=== PATIENT | female | born 1955 | race Caucasian/White ===

== ENCOUNTER → 2017-01-17 | Outpatient (REF) | payer OTHER | LOC: M LAB REF 12:27 | PROVIDERS: ATTEND Nurse Practitioner Family | DX: R21 Rash and other nonspecific skin eruption (principal) ==

== ENCOUNTER → 2017-05-28 | Outpatient (CLI) | payer OTHER ==
--- NOTE | 2017-05-28 10:45 | REPMRS ---
Patient History The patient states she has not had a clinical breast exam in over a year. Patient is postmenopausal and is nulliparous. Family history of prostate cancer in father at age 75 and colorectal cancer in mother at age 74. Benign core biopsy of the left breast, 2010. Benign lumpectomy of the left breast, 2004. Took hormonal contraceptives for 5 years. Took estrogen for 7 years. Took progesterone for 7 years. Digital Mammo Screening Bilat: May 28, 2017 - Exam #: [id number] Bilateral CC and MLO view(s) were taken. Technologists: Marielle Ugarte, Technologist; Darrin Mooney, Technologist Prior study comparison: May 26, 2016, bilateral digital mammo screening bilat performed at [facility]. May 25, 2015, bilateral digital mammo screening bilat performed at [facility]. FINDINGS: There are scattered fibroglandular densities. There has been no change in the appearance of the mammogram from the prior studies. There is a mild amount of residual fibroglandular tissue which is fairly symmetric. There is no interval development of dominant mass, architectural distortion, or clustered microcalcification suggestive of malignancy. ASSESSMENT: BI-RADS/ACR category 1 mammogram. Negative. Recommendation Routine screening mammogram in 1 year (for women over age 40). This mammogram was interpreted with the aid of an FDA-approved computer-aided dectection system. Electronically Signed By: Joe Cardona MD 05/28/17 2414
== END ==
LOC: M RAD 09:41
PROVIDERS: ATTEND Nurse Practitioner Family
DX: Z12.31 Encounter for screening mammogram for malignant neoplasm of breast (principal)

== ENCOUNTER → 2018-04-25 | Outpatient (REF) | payer OTHER | LOC: M LAB REF 09:25 | DX: J02.9 Acute pharyngitis, unspecified (principal) | CPT/HCPCS: 87081 ==

== ENCOUNTER → 2018-05-30 | Outpatient (CLI) | payer OTHER | LOC: M RAD 07:44 | DX: Z12.31 Encounter for screening mammogram for malignant neoplasm of breast (principal) ==

== ENCOUNTER → 2018-06-13 | Outpatient (CLI) | payer OTHER ==
[2018-06-13 13:00] LABS: BASO % 0.5 % (0.0-1.0); EOS # 0.3 10^3/uL (0.0-0.50); EOS % 6.7 % (0.0-3.0); HEMATOCRIT 41.8 % (36.0-47.0); HEMOGLOBIN 13.4 g/dl (12.0-15.5); IMMATURE GRANULOCYTE % 0.3 % (0-3.0); LYMPH # 0.9 10^3/uL (1.5-4.5); LYMPH % 23.2 % (24.0-44.0); MEAN CORPUSCULAR HEMOGLOBIN 30.7 pg (27.0-33.0); MEAN CORPUSCULAR HGB CONC 32.1 g/dl (32.0-36.5); MEAN CORPUSCULAR VOLUME 95.9 fl (80.0-96.0); MONO # 0.5 10^3/uL (0.0-0.8); MONO % 12.7 % (0.0-5.0); NEUTROPHILS # 2.1 10^3/uL (1.8-7.7); NEUTROPHILS % 56.6 % (36.0-66.0); PLATELET COUNT, AUTOMATED 206 10^3/uL (150-450); RED BLOOD COUNT 4.36 10^6/uL (4.00-5.40); RED CELL DISTRIBUTION WIDTH 12.8 % (11.5-14.5); WHITE BLOOD COUNT 3.7 10^3/uL (4.0-10.0)
[2018-06-13 13:11] LABS: ALBUMIN 3.4 GM/DL (3.2-5.2); ALBUMIN/GLOBULIN RATIO 1.13 (1.00-1.93); ALKALINE PHOSPHATASE 92 U/L (45-117); ALT/SGPT 29 U/L (12-78); ANION GAP 7 MEQ/L (8-16); AST/SGOT 25 U/L (7-37); BILIRUBIN,TOTAL 0.4 MG/DL (0.2-1.0); BLOOD UREA NITROGEN 20 MG/DL (7-18); CALCIUM LEVEL 9.1 MG/DL (8.8-10.2); CARBON DIOXIDE LEVEL 26 MEQ/L (21-32); CHLORIDE LEVEL 110 MEQ/L (98-107); CREATININE FOR GFR 0.75 MG/DL (0.55-1.30); GLOMERULAR FILTRATION RATE > 60.0 (>45); GLUCOSE, FASTING 76 MG/DL (70-100); POTASSIUM SERUM 4.6 MEQ/L (3.5-5.1); SODIUM LEVEL 143 MEQ/L (136-145); TOTAL PROTEIN 6.4 GM/DL (6.4-8.2)
== END ==
LOC: M WUC 09:47
DX: M79.603 Pain in arm, unspecified (principal); M50.223 Other cervical disc displacement at C6-C7 level; M50.222 Other cervical disc displacement at C5-C6 level
CPT/HCPCS: 80053

== ENCOUNTER → 2018-06-17 | Outpatient (REF) | payer OTHER ==
[2018-06-17 21:14] LABS: C REACTIVE PROTEIN QUANTITATIV 1.39 MG/DL (0.00-0.30)
[2018-06-20 00:07] LABS: Lyme Disease IgG/IgM Antibodie <0.91 ISR (0.00-0.90); Lyme Disease IgM Ab Quantitati <0.80 index (0.00-0.79)
== END ==
LOC: M LAB REF 16:35
DX: M79.10 Myalgia, unspecified site (principal); M19.90 Unspecified osteoarthritis, unspecified site

== ENCOUNTER → 2018-06-24 | Outpatient (REF) | payer OTHER ==
[2018-06-24 14:14] LABS: C REACTIVE PROTEIN QUANTITATIV 0.65 MG/DL (0.00-0.30)
== END ==
LOC: M LAB REF 13:29
DX: M19.90 Unspecified osteoarthritis, unspecified site (principal)

== ENCOUNTER → 2018-07-19 | Outpatient (REF) | payer OTHER ==
[2018-07-19 12:47] LABS: C REACTIVE PROTEIN QUANTITATIV 0.86 MG/DL (0.00-0.30)
== END ==
LOC: M LAB REF 12:23
DX: M19.90 Unspecified osteoarthritis, unspecified site (principal)

== ENCOUNTER → 2018-09-23 | Outpatient (REF) | payer OTHER | LOC: M LAB REF 11:57 | PROVIDERS: ATTEND Internal Medicine | DX: E07.9 Disorder of thyroid, unspecified (principal) ==

== ENCOUNTER → 2018-11-21 | Outpatient (REF) | payer OTHER | LOC: M LAB REF 13:50 | PROVIDERS: ATTEND Nurse Practitioner Family | DX: R79.82 Elevated C-reactive protein (CRP) (principal) ==

== ENCOUNTER 2019-05-22 07:51 | Day surgery (SDC) | payer MEDICARE, OTHER ==
[~2019-05-22] VITALS: Ht 172.7 cm; Wt 124.7 kg
[~2019-05-22 07:51] MED LIST: CALC500C16 PO; LEVO25TA5 PO; MULTCAP PO; NS 1,000 ML IV ONE; OLME20TA2 PO; OYST1TAB PO
[2019-05-22] MEDS ORDERED: LIDOCAINE 2% INJ 100 MG/5 ML SDV (FOR ANES.) As Ordered ONE (09:24)
[2019-05-22] MEDS ORDERED: PROPOFOL 200 MG/20 ML VIAL As Ordered ONE ×2 (09:24→10:14)
--- NOTE | 2019-05-22 10:33 | ROOR ---
Patient Name: Deborah Cloud Procedure Date: 05/22/2019 9:40 AM Date of : 1955 Age: 64 Room: [facility] Gender: Female Note Status: Finalized Procedure: Colonoscopy Indications: Screening patient at increased risk: Family history of 1st-degree relative with colorectal cancer at age 60 years (or older) Providers: Aren Dominguez MD Referring MD: NATALYA TYSON NP Requesting Provider: Medicines: Monitored Anesthesia Care Complications: No immediate complications. Procedure: Pre-Anesthesia Assessment: - Prior to the procedure, a History and Physical was performed, and patient medications and allergies were reviewed. The patient is competent. The risks and benefits of the procedure and the sedation options and risks were discussed with the patient. All questions were answered and informed consent was obtained. Patient identification and proposed procedure were verified by the physician, the nurse and the anesthesiologist in the procedure room. Mental Status Examination: alert and oriented. Airway Examination: normal oropharyngeal airway and neck mobility. Respiratory Examination: clear to auscultation. CV Examination: normal. Prophylactic Antibiotics: The patient does not require prophylactic antibiotics. Prior Anticoagulants: The patient has taken no previous anticoagulant or antiplatelet agents. ASA Grade Assessment: II - A patient with mild systemic disease. After reviewing the risks and benefits, the patient was deemed in satisfactory condition to undergo the procedure. The anesthesia plan was to use monitored anesthesia care (MAC). Immediately prior to administration of medications, the patient was re-assessed for adequacy to receive sedatives. The heart rate, respiratory rate, oxygen saturations, blood pressure, adequacy of pulmonary ventilation, and response to care were monitored throughout the procedure. The physical status of the patient was re-assessed after the procedure. The Colonoscope was introduced through the anus and advanced to the terminal ileum, with identification of the appendiceal orifice and IC valve. The colonoscopy was performed without difficulty. The patient tolerated the procedure well. The quality of the bowel preparation was good. The terminal ileum, ileocecal valve, appendiceal orifice, and rectum were photographed. Scope insertion time was 4 minutes. Scope withdrawal time was 8 minutes. The total duration of the procedure was 12 minutes. Findings: The perianal and digital rectal examinations were normal. The terminal ileum appeared normal. Three sessile polyps were found in the sigmoid colon, transverse colon and ascending colon. The polyps were 5 to 8 mm in size. These polyps were removed with a cold snare. Resection and retrieval were complete. Verification of patient identification for the specimen was done by the physician and nurse using the patient's name, date and medical record number. Estimated blood loss was minimal. Multiple small-mouthed diverticula were found from sigmoid to descending colon. There was no evidence of diverticular bleeding. Non-bleeding external and internal hemorrhoids were found during retroflexion. The hemorrhoids were medium-sized. Impression: - The examined portion of the ileum was normal. - Three 5 to 8 mm polyps in the sigmoid colon, in the transverse colon and in the ascending colon, removed with a cold snare. Resected and retrieved. - Moderate diverticulosis from sigmoid to descending colon. There was no evidence of diverticular bleeding. - Non-bleeding external and internal hemorrhoids. Recommendation: - Patient has a contact number available for emergencies. The signs and symptoms of potential delayed complications were discussed with the patient. Return to normal activities tomorrow. Written discharge instructions were provided to the patient. - High fiber diet. - Continue present medications. - Await pathology results. - Repeat colonoscopy in 3 - 5 years for surveillance based on pathology results. - Telephone GI clinic for pathology results in 2 weeks. - Return to primary care physician. Aren Dominguez MD Aren Dominguez MD 05/22/2019 10:33:17 AM Electronically signed by Aren Dominguez MD Number of Addenda: 0 Note Initiated On: 05/22/2019 9:40 AM Estimated Blood Loss: Estimated blood loss was minimal.
[2019-05-22 10:46] VITALS: BP 160/82
== END 2019-05-22 10:53 | disposition home or self-care (01) ==
LOC: M OPP 07:51
PROVIDERS: ATTEND Internal Medicine Gastroenterology
DX: Z12.11 Encounter for screening for malignant neoplasm of colon (principal); Z80.0 Family history of malignant neoplasm of digestive organs; K64.8 Other hemorrhoids; D12.5 Benign neoplasm of sigmoid colon; D12.3 Benign neoplasm of transverse colon; D12.2 Benign neoplasm of ascending colon; K57.30 Diverticulosis of large intestine without perforation or abscess without bleeding; G47.30 Sleep apnea, unspecified; Z79.899 Other long term (current) drug therapy; Z88.2 Allergy status to sulfonamides

== ENCOUNTER → 2019-06-02 | Outpatient (CLI) | payer MEDICARE, OTHER ==
[~2019-06-02] MED LIST changes: -NS 1,000 ML IV ONE
--- NOTE | 2019-06-02 09:27 | REPMRS ---
Patient History The patient states she had a clinical breast exam in 2018. Family history of colorectal cancer at age 74 in mother, prostate cancer at age 75 in father. Benign core biopsy of the left breast, 2010. Benign lumpectomy of the left breast, 2004. Took hormonal contraceptives for 5 years. Took estrogen for 7 years. Took progesterone for 7 years. 3D TOMOSYNTHESIS WAS PERFORMED. The [facility] lifetime risk for breast cancer is 8.1%. Digital Mammo Screening Bilat: June 02, 2019 - Exam #: [id number] Bilateral CC and MLO view(s) were taken. Technologist: Marielle Ugarte, Technologist Prior study comparison: May 30, 2018, bilateral digital mammo screening bilat performed at [facility]. May 28, 2017, bilateral digital mammo screening bilat performed at [facility]. FINDINGS: There are scattered fibroglandular densities. There has been no change in the appearance of the mammogram from the prior studies. There is a mild amount of residual fibroglandular tissue which is fairly symmetric. There is no interval development of dominant mass, architectural distortion, or clustered microcalcification suggestive of malignancy. Assessment: BI-RADS/ACR category 1 mammogram. Negative Mammogram. Recommendation Routine screening mammogram in 1 year (for women over age 40). This mammogram was interpreted with the aid of an FDA-approved computer-aided dectection system. Electronically Signed By: Joe Cardona MD 06/02/19 0985
== END ==
LOC: M RAD 08:18
PROVIDERS: ATTEND Nurse Practitioner Family
DX: Z12.31 Encounter for screening mammogram for malignant neoplasm of breast (principal)

== ENCOUNTER → 2020-06-03 | Outpatient (CLI) | payer MEDICARE, OTHER ==
--- NOTE | 2020-06-09 07:57 | REP ---
BILATERAL SCREENING MAMMOGRAM WITH 3D TOMOSYNTHESIS HISTORY: No family history of breast cancer. Tyrer-Cuzick lifetime risk of breast cancer 7.7%. TECHNIQUE: MLO and CC views of the bilateral breasts is performed with 3D tomosynthesis. FINDINGS: Mild fibroglandular tissue is present bilaterally in a fairly symmetrical pattern. Volpara breast density is B. I see no new mass or architectural distortion. The patient had a prior negative stereotactic biopsy of the left breast in 2010. A metallic clip is again seen in the upper left breast. There are increasing tiny calcifications adjacent to the clip when compared to prior studies. I would recommend magnification views to further evaluate. IMPRESSION: ACR 0 incomplete. In the upper left breast at the site of the prior biopsy, there appears to be an increasing number of tiny calcifications at that location. I would recommend further evaluation with magnification views. This mammogram was interpreted with the aid of an FDA approved computer-aided detection system. The patient states her last clinical breast exam was November 2019. Patient letter: 0. MTDD
--- NOTE | 2020-06-14 11:43 | DEXA ---
AP SPINE L1 - L4 1.345 1.4 3.0 LT FEMUR TOTAL 1.130 1.0 2.2 LT NECK 1.141 0.7 2.3 RT FEMUR TOTAL 1.128 1.0 2.2 RT NECK 1.102 0.5 2.0 TOTAL BODY TOTAL OTHER COMMENTS: Normal bone densitometry of the spine and hips. The increased density of the spine does not represent a significant change. The decreased density of the left hip does represent significant change. The decreased density of the right hip does represent significant change. The density of the spine has increased 1.4% since the initial exam on 04/09/2002. The increased 1.2% since the most recent exam on 04/21/2008. The density of the left hip has decreased 9.0% since the initial exam on 04/09/2002. The density of the left hip has decreased 4.8% since the most recent exam on 04/21/2008. The density of the right hip has decreased 8.4% since the initial exam on 04/09/2002. The density of the right hip has decreased 2.9% since the most recent exam on 04/21/2008. FOLLOW-UP: Recommendation for the next bone density exam: 5 years. CATHERINE
== END ==
LOC: M WHC 10:55
PROVIDERS: ATTEND Nurse Practitioner Family
DX: R92.2 Inconclusive mammogram (principal); Z13.820 Encounter for screening for osteoporosis; N60.02 Solitary cyst of left breast; M85.851 Other specified disorders of bone density and structure, right thigh; M85.852 Other specified disorders of bone density and structure, left thigh

== ENCOUNTER → 2020-06-23 | Outpatient (CLI) | payer MEDICARE, OTHER ==
--- NOTE | 2020-06-28 11:48 | REP ---
DATE: 06/23/2020 TIME: 10:10 a.m. DIGITAL DIAGNOSTIC UNILATERAL LEFT BREAST MAMMOGRAPHY WITH CAD: 3 views. HISTORY: Screening mammography from June 03, 2020 was BI-RADS category 0 because of calcifications in the left breast. Diagnostic imaging is recommended. Comparison mammography is also reviewed from 06/02/2019, 05/2018 and remote prior mammography dating back to 2010. This patient is status post benign stereotatic needle biopsy in the left breast and prior benign excisional biopsy in the left breast. MAMMOGRAPHIC FINDINGS: Magnifying focal spot compression CC, ML and MLO views of the left breast confirmed the presence of a grouping of polymorphic microcalcifications and coarse calcifications in the left breast centrally at approximately 12 o'clock position, middle 3rd. This is immediately adjacent to a previously placed needle biopsy marker clip. The microcalcifications have increased in number and size. The stereotatic needle biopsy was done in 2010 apparently with benign results. There are benign secretory calcifications medially in the left breast as before. No other mammographic abnormality. IMPRESSION: BI-RADS category 4 suspicious left breast mammogram. Increasing microcalcifications in the 12 o'clock position of the left breast. Repeat sterotactic needle biopsy recommended. The patient letter is M4. Tyrer-Cuzick lifetime breast cancer assessment score is 7.7%. This mammogram was interpreted with the aid of a FDA improved computer assisted detection device. [facility]
== END ==
LOC: M WHC 09:56
PROVIDERS: ATTEND Registered Nurse
DX: N60.02 Solitary cyst of left breast (principal); R92.2 Inconclusive mammogram; Z13.820 Encounter for screening for osteoporosis

== ENCOUNTER → 2020-07-13 | Outpatient (CLI) | payer MEDICARE, OTHER ==
--- NOTE | 2020-07-13 10:16 | REP ---
INDICATION: LEFT BREAST MICROCALCIFICATIONS/POST BX CK CLIP PLACEMENT. COMPARISON: Mammogram 06/23/2020. TECHNIQUE: A specimen radiograph is performed. FINDINGS: Multiple calcifications are seen in the specimens, as well as the previously noted biopsy marking clip at the site of the clustered microcalcifications. IMPRESSION: Successful stereotactic biopsy left breast. RECOMMENDATION: Clinical follow-up. <Electronically signed by Joe Cardona > 07/13/20 1013
--- NOTE | 2020-07-13 10:18 | REP ---
INDICATION: LEFT BREAST MICROCALCIFICATIONS. COMPARISON: Mammogram 06/23/2020. TECHNIQUE: ML and CC views of the left breast are performed. FINDINGS: Following stereotactic biopsy of the left breast, the vast majority of the previously noted clustered microcalcifications at 12 o'clock left breast are no longer visualized. The previously noted biopsy clip is no longer visualized. Few tiny residual calcifications remain. IMPRESSION: Successful stereotactic biopsy left breast 12 o'clock. RECOMMENDATION: Clinical follow-up. <Electronically signed by Joe Cardona > 07/13/20 1019
[2020-07-13 11:44] VITALS: BP 130/64
--- NOTE | 2020-07-13 16:23 | REP ---
INDICATION: LEFT BREAST MICROCALCIFICATIONS. COMPARISON: The patient has a history of increasing microcalcifications in the 12 o'clock position of the left breast seen on a previous mammogram dated 06/23/2020. TECHNIQUE: The procedure was performed under the direct supervision of Dr. Cardona. The risks and benefits of the procedure were explained to the patient and informed consent was obtained. A craniocaudal approach was utilized. The calcifications were localized using stereotactic mammographic guidance. 1% Xylocaine was used as a local anesthetic. An 10 gauge, suction assisted Mammotome needle was inserted and 6 core biopsy samples were obtained. Specimen radiograph demonstrates the presence of calcifications to be within the specimen. A marker clip (HydroMARK shaped 3) was placed at the biopsy site. The patient tolerated the procedure well and there were no immediate complications. After the appropriate amount of monitored convalescence, the patient was discharged from the department. FINDINGS: None IMPRESSION: Technically successful stereotactic left breast biopsy. <Electronically signed by Ismael Choi > 07/13/20 1043 <Electronically signed by Joe Cardona > 07/13/20 [id number]
== END ==
LOC: M WHCPRO 07:55
PROVIDERS: ATTEND Registered Nurse
DX: N60.12 Diffuse cystic mastopathy of left breast (principal); N60.22 Fibroadenosis of left breast; D24.2 Benign neoplasm of left breast

== ENCOUNTER → 2021-02-21 | Outpatient (CLI) | payer MEDICARE, OTHER ==
--- NOTE | 2021-02-21 14:48 | REP ---
INDICATION: PAIN COMPARISON: 02/11/2009 TECHNIQUE: Five views FINDINGS: There is tricompartmental marginal osteophytosis which has developed since the last exam the compartments are again seen to be symmetric and relatively well maintained. There is no acute fracture, dislocation, or subluxation.. IMPRESSION: Chronic changes as described above. <Electronically signed by Enmanuel Muhammad > 02/21/21 [id number]
== END ==
LOC: M WUC 14:01
PROVIDERS: ATTEND Internal Medicine
DX: M25.562 Pain in left knee (principal); M25.762 Osteophyte, left knee

== ENCOUNTER → 2021-06-01 | Outpatient (REF) | payer MEDICARE, OTHER | LOC: M LAB REF 16:08 | PROVIDERS: ATTEND Internal Medicine | DX: R10.9 Unspecified abdominal pain (principal) ==

== ENCOUNTER → 2021-06-06 | Outpatient (CLI) | payer MEDICARE, OTHER ==
--- NOTE | 2021-06-06 10:26 | REPMRS ---
Patient History The patient states she has not had a clinical breast exam in over a year. Family history of colorectal cancer at age 74 in mother, prostate cancer at age 75 in father. Benign stereotatic loc for ea lesion. of the left breast, July 13, 2020. Benign radio exam breast specimen. of the left breast, July 13, 2020. Benign core biopsy of the left breast, 2010. Benign lumpectomy of the left breast, 2004. Took hormonal contraceptives for 5 years. Took estrogen for 7 years. Took progesterone for 7 years. Moderna vaccine 11/05/20 left arm. 11/30/20 left arm. Patient states no breast complaints today. Patient has signed MRS History Sheet. Digital Woman Screen Mammo: June 06, 2021 - Exam #: [id number] Bilateral CC and MLO view(s) were taken. Technologist: RT Tresa Prior study comparison: June 23, 2020, left breast diagnostic unilateral mammo performed at [facility]. June 03, 2020, bilateral digital woman screen mammo performed at [facility]. FINDINGS: There are scattered fibroglandular densities. Screening. Digital screening (2D) mammography was performed bilaterally in the CC and MLO projections. Additionally, breast tomosynthesis (3D mammography) was performed bilaterally in the CC and MLO projections. Todays exam was compared to the prior exam/exams. By history, the patient has no complaints of a palpable breast abnormality or other significant breast complaints. The breasts are unchanged in size and shape. There are no pat-soft tissue densities or spiculated masses. There is no internal architectural distortion.Once again, stable benign appearing calcifications are seen. There are no suspicious pat-calcific clusters. Skin thickening or nipple retraction is not present. IMPRESSION: BI-RADS Category 2- Benign Findings. There is no evidence of malignant alteration of the breasts. Followup examination recommended in one year. The Volpara volumetric breast density category is B, there are scattered areas of fibroglandular densities. This mammogram was read with the assistance of [employer],an FDA approved computer aided detection system for mammography. The lifetime Tyrer-Cuzick score is 7.3 % Negative x-ray reports should not delay surgical consultation if a dominant or clinically suspicious mass is present. Not all breast cancers can be identified by mammography. Therefore, we recommend that you continue to perform regular breast self-examination and physical examination and then promptly contact your physician of any concerns or changes. Adenosis and dense breasts may obscure an underlying neoplasm. Assessment: BI-RADS/ACR category 2 mammogram. Benign Findings. Recommendation Routine screening mammogram of both breasts in 1 year. Electronically Signed By: Enmanuel Muhammad DO 06/06/21 1020
== END ==
LOC: M WHC 09:15
PROVIDERS: ATTEND Internal Medicine
DX: Z12.31 Encounter for screening mammogram for malignant neoplasm of breast (principal); Z80.3 Family history of malignant neoplasm of breast

== ENCOUNTER → 2021-11-02 | Outpatient (CLI) | payer MEDICARE, OTHER ==
[~2021-11-02] MED LIST changes: +LOSA50TA28 PO; +MIRA3350 PO; +SYNT112T2 PO; +VITMTA PO
== END ==
LOC: M LABSMTC 11:24
PROVIDERS: ATTEND Anesthesiology
DX: Z01.812 Encounter for preprocedural laboratory examination (principal); Z20.822 Contact with and (suspected) exposure to COVID-19

== ENCOUNTER 2021-11-07 07:29 | Day surgery (SDC) | payer MEDICARE, OTHER ==
[~2021-11-07] VITALS: Ht 172.7 cm; Wt 129.3 kg
[~2021-11-07 07:29] MED LIST changes: +LIDOCAINE 2% 100MG/5ML SDV (FOR ANES.) As Ordered ONE; +NS 1,000 ML IV ONE; +propofoL 200 MG/20 ML VIAL As Ordered ONE
[2021-11-07] MEDS ORDERED: propofoL 200 MG/20 ML VIAL As Ordered ONE (09:20)
[2021-11-07 09:50] VITALS: BP 146/65
== END 2021-11-07 10:01 | disposition home or self-care (01) ==
LOC: M OPP 07:29
PROVIDERS: ATTEND Internal Medicine Gastroenterology
DX: Z12.11 Encounter for screening for malignant neoplasm of colon (principal); Z86.010 Personal history of colon polyps; Z80.0 Family history of malignant neoplasm of digestive organs; K63.5 Polyp of colon; K57.30 Diverticulosis of large intestine without perforation or abscess without bleeding; K64.8 Other hemorrhoids; Z79.899 Other long term (current) drug therapy; Z88.2 Allergy status to sulfonamides

== ENCOUNTER → 2022-06-07 | Outpatient (CLI) | payer MEDICARE, OTHER ==
[~2022-06-07] MED LIST changes: -LIDOCAINE 2% 100MG/5ML SDV (FOR ANES.) As Ordered ONE; -NS 1,000 ML IV ONE; -propofoL 200 MG/20 ML VIAL As Ordered ONE
== END ==
LOC: M WHC 09:08
PROVIDERS: ATTEND Internal Medicine
DX: Z12.31 Encounter for screening mammogram for malignant neoplasm of breast (principal)

== ENCOUNTER → 2023-06-26 | Outpatient (REF) | payer MEDICARE, OTHER | LOC: M LAB REF 16:09 | PROVIDERS: ATTEND Internal Medicine | DX: R10.9 Unspecified abdominal pain (principal) ==

== ENCOUNTER → 2024-04-23 | Outpatient (CLI) | payer MEDICARE, OTHER ==
[~2024-04-23] MED LIST changes: -OLME20TA2 PO; +OLME20TA50 PO
== END ==
LOC: M PLAIMG 11:30
PROVIDERS: ATTEND Internal Medicine
DX: M25.512 Pain in left shoulder (principal); M19.012 Primary osteoarthritis, left shoulder

== ENCOUNTER → 2024-06-09 | Outpatient (CLI) | payer MEDICARE, OTHER | LOC: M WHC 10:35 | PROVIDERS: ATTEND Internal Medicine | DX: Z12.31 Encounter for screening mammogram for malignant neoplasm of breast (principal); R92.313 Mammographic fatty tissue density, bilateral breasts ==

== ENCOUNTER 2024-09-05 19:56 | Emergency (ER) | payer MEDICARE, OTHER ==
[~2024-09-05] VITALS: Ht 170.2 cm; Wt 135.7 kg
[2024-09-05 23:55] VITALS: BP 142/73; TEMP 97.8; O2SAT 98
== END 2024-09-05 23:59 | disposition home or self-care (01) ==
LOC: M ED 19:56
DX: S80.12XA Contusion of left lower leg, initial encounter (principal); X58.XXXA Exposure to other specified factors, initial encounter; I10 Essential (primary) hypertension; E03.9 Hypothyroidism, unspecified; Z88.2 Allergy status to sulfonamides

== ENCOUNTER → 2024-09-18 | Outpatient (CLI) | payer MEDICARE, OTHER | LOC: M WUC 09:50 | PROVIDERS: ATTEND Nurse Practitioner Family | DX: M79.672 Pain in left foot (principal); M25.572 Pain in left ankle and joints of left foot ==

== ENCOUNTER → 2025-03-25 | Outpatient (CLI) | payer MEDICARE, OTHER | LOC: M WUC 14:53 | PROVIDERS: ATTEND Internal Medicine | DX: M79.662 Pain in left lower leg (principal) ==

== ENCOUNTER → 2025-05-28 | Outpatient (CLI) | payer MEDICARE, OTHER | LOC: M WUC 13:36 | PROVIDERS: ATTEND Internal Medicine | DX: M79.662 Pain in left lower leg (principal); M51.369 Other intervertebral disc degeneration, lumbar region without mention of lumbar back pain or lower extremity pain; M51.379 Other intervertebral disc degeneration, lumbosacral region without mention of lumbar back pain or lower extremity pain ==

== ENCOUNTER → 2025-06-12 | Outpatient (CLI) | payer MEDICARE, OTHER | LOC: M WHC 09:48 | PROVIDERS: ATTEND Internal Medicine | DX: Z12.31 Encounter for screening mammogram for malignant neoplasm of breast (principal) ==